=== PATIENT | male | born 1950 | race Caucasian/White ===

== ENCOUNTER 2019-10-28 11:44 | Emergency (ER) | payer MEDICARE, SELFPAY ==
[2019-10-28 11:51] VITALS: BP 152/88; PULSE 58; RESP 20; TEMP 36.5; O2SAT 99
--- NOTE | 2019-10-28 12:32 | ED.GENADULT ---
HPI - General Adult General Chief complaint: Unspecified Stated complaint: wants order for covid test Source: patient and RN notes reviewed Mode of arrival: ambulatory Limitations: no limitations History of Present Illness HPI narrative: The overweight patient, a non-smoker/nondrinker, presents for blood test. Patient states he is elderly with comorbidities [obesity, white coat HTN] and would like a COVID test especially as he is planning an upcoming trip to at risk family members. He is asymptomatic [no fever, cough, shortness of breath, loss of taste/smell, N/V/D/dehydration Related Data Home Medications Medication Instructions Recorded Confirmed No Home Medications 10/28/19 10/28/19 Allergies Allergy/AdvReac Type Severity Reaction Status Date / Time No Known Allergies Allergy Verified 10/28/19 11:59 Review of Systems Review of Systems: Narrative: General/Constitutional: No weight loss,fever Eyes: N0: Redness,discharge Ears/Nose/Throat: No: Epistaxis,ear discharge Respiratory: Denies: Hemoptysis Gastrointestinal: No Vomiting, Bleeding-rectal Skin: No Lumps, eruption PMFSH Comments At time of signature, agree with nursing past medical, surgical, social and family history. There is no relevant family history pertinent to the presenting complaint Exam Narrative: Exam Narrative: General Appearance: Well appearing, No distress, Conjunctiva clear Mouth/Throat: Normal appearing, Normal lips Supple Respiratory: Airway patent, No respiratory distress Musculoskeletal: Full strength Skin: Warm, Dry Neurological: A&O x3, , Normal affect Course Vital Signs Vital signs: Vital Signs Temperature 97.7 F 10/28/19 11:51 Pulse Rate 58 L 10/28/19 11:51 Respiratory Rate 10/28/19 11:51 Blood Pressure 152/88 H 10/28/19 11:51 Pulse Oximetry 99 10/28/19 11:51 Temperature 97.7 F 10/28/19 11:51 Pulse Rate 58 L 10/28/19 11:51 Respiratory Rate 10/28/19 11:51 Blood Pressure 152/88 H 10/28/19 11:51 Pulse Oximetry 99 10/28/19 11:51 Medical Decision Making Vital Signs Vital Signs: Vital Signs Temperature 97.7 F 10/28/19 11:51 Pulse Rate 58 L 10/28/19 11:51 Respiratory Rate 10/28/19 11:51 Blood Pressure 152/88 H 10/28/19 11:51 Pulse Oximetry 99 10/28/19 11:51 Temperature 97.7 F 10/28/19 11:51 Pulse Rate 58 L 10/28/19 11:51 Respiratory Rate 20 10/28/19 11:51 Blood Pressure 152/88 H 10/28/19 11:51 Pulse Oximetry 99 10/28/19 11:51 Discharge Plan Discharge Clinical Impression: Visit for blood test, Elevated BP without diagnosis of hypertension Patient Disposition: Home, Self-Care Condition: Stable Instructions: Hypertension in the Older Adult (ED) Prescriptions: No Action No Home Medications RF: 0 Interventions: Discharge Disposition Last Done: 10/28/19 12:19 Follow-up/Referrals: Teresa,Ori Snowden MD [Primary Care Provider] - Discharge Date/Time: 10/28/19 12:19
--- NOTE | 2019-11-08 08:56 | ED.GENADULT ---
HPI - General Adult General Chief complaint: Unspecified Stated complaint: wants order for covid test Source: patient and RN notes reviewed Mode of arrival: ambulatory Limitations: no limitations Related Data Home Medications Medication Instructions Recorded Confirmed No Home Medications 10/28/19 10/28/19 Allergies Allergy/AdvReac Type Severity Reaction Status Date / Time No Known Allergies Allergy Verified 10/28/19 11:59 Course Vital Signs Vital signs: Vital Signs Temperature 97.7 F 10/28/19 11:51 Pulse Rate 58 L 10/28/19 11:51 Respiratory Rate 10/28/19 11:51 Blood Pressure 152/88 H 10/28/19 11:51 Pulse Oximetry 99 10/28/19 11:51 Temperature 97.7 F 10/28/19 11:51 Pulse Rate 58 L 10/28/19 11:51 Respiratory Rate 10/28/19 11:51 Blood Pressure 152/88 H 10/28/19 11:51 Pulse Oximetry 99 10/28/19 11:51 Medical Decision Making Vital Signs Vital Signs: Vital Signs Temperature 97.7 F 10/28/19 11:51 Pulse Rate 58 L 10/28/19 11:51 Respiratory Rate 10/28/19 11:51 Blood Pressure 152/88 H 10/28/19 11:51 Pulse Oximetry 99 10/28/19 11:51 Temperature 97.7 F 10/28/19 11:51 Pulse Rate 58 L 10/28/19 11:51 Respiratory Rate 10/28/19 11:51 Blood Pressure 152/88 H 10/28/19 11:51 Pulse Oximetry 99 10/28/19 11:51 Discharge Plan Discharge Clinical Impression: Visit for blood test, Elevated BP without diagnosis of hypertension Patient Disposition: Home, Self-Care Condition: Stable Instructions: Hypertension in the Older Adult (ED) Prescriptions: No Action No Home Medications RF: 0 Follow-up/Referrals: Teresa,Ori Snowden MD [Primary Care Provider] - Discharge Date/Time: 10/28/19 12:19
== END 2019-10-28 12:19 | disposition home or self-care (01) ==
PROVIDERS: Emergency Provider Emergency Medicine; PCP Internal Medicine
DX: Z20.828 Contact with and (suspected) exposure to other viral communicable diseases (principal); R03.0 Elevated blood-pressure reading, without diagnosis of hypertension; E66.9 Obesity, unspecified; Z68.33 Body mass index [BMI] 33.0-33.9, adult
CPT/HCPCS: 99211; G0463

== ENCOUNTER 2019-10-29 06:49 | Outpatient (NON) | payer MEDICARE, SELFPAY ==
[2019-10-29 23:30] LABS: SARS-CoV-2 RNA PCR Negative
== END 2019-10-29 06:50 ==
PROVIDERS: PCP Internal Medicine; Visit Provider Emergency Medicine
DX: E66.3 Overweight (principal); R03.0 Elevated blood-pressure reading, without diagnosis of hypertension; Z20.828 Contact with and (suspected) exposure to other viral communicable diseases
CPT/HCPCS: 87635; C9803; U0003